=== PATIENT | male | born 1965 | race Caucasian/White ===

== ENCOUNTER → 2017-06-28 | Outpatient (CLI) | payer OTHER ==
[~2017-06-28] MED LIST: CHOLESTEROL MED; CYCL10 PO; IBUP800 PO; OXYACE5T PO
== END | disposition home or self-care (01) ==
LOC: LAB 21:00
DX: L08.9 Local infection of the skin and subcutaneous tissue, unspecified (principal)
CPT/HCPCS: 87070; 87077; 87147; 87186; 87205

== ENCOUNTER 2018-03-23 10:53 | Observation (INO) | payer OTHER ==
[~2018-03-23] VITALS: Ht 177.8 cm; Wt 117.9 kg
[~2018-03-23 10:53] MED LIST changes: -IBUP800 PO; +Ibuprofen Ib200 MG PO
[2018-03-23 12:12] LABS: BASOPHILS ABSOLUTE AUTO 0.03 K/mm3 (0.00-0.23); BASOPHILS PERCENT AUTO 0 % (0-2); EOSINOPHILS ABSOLUTE AUTO 0.01 K/mm3 (0.00-0.68); EOSINOPHILS PERCENT AUTO 0 % (0-6); Hematocrit 44.2 % (37.0-53.0); Hemoglobin 13.5 g/dL (13.5-17.5); IMMATURE GRAN ABSOLUTE AUTO 0.03 K/mm3 (0.00-0.10); IMMATURE GRAN PERCENT AUTO 0 % (0-1); LYMPHOCYTES ABSOLUTE AUTO 0.93 K/mm3 (0.84-5.20); LYMPHOCYTES PERCENT AUTO 12 % (21-46); MONOCYTES ABSOLUTE AUTO 0.74 K/mm3 (0.16-1.47); MONOCYTES PERCENT AUTO 9 % (4-13); Mean Corpuscular HGB 26.8 pg (26.0-34.0); Mean Corpuscular HGB Conc 30.5 g/dL (31.5-36.5); Mean Corpuscular Volume 88 fL (80-100); Mean Platelet Volume 10.1 fL (9.1-12.4); NEUTROPHILS PERCENT AUTO 78 % (41-73); Platelet Count 278 K/mm3 (150-400); RDW Coefficient Variation 14.4 % (11.7-14.2); RDW Standard Deviation 46.3 fL (35.1-46.3); Red Blood Cell Count 5.04 M/mm3 (4.30-5.90); White Blood Cell Count 8.04 K/mm3 (4.00-11.30)
[2018-03-23 12:42] LABS: Alanine Aminotransfer (ALT/SGP 31 U/L (12-78); Albumin/Globulin Ratio 0.7 (0.8-1.8); Alk Phos 109 U/L (50-136); Anion Gap 7 mmol/L (6-16); Aspartate Aminotrans (AST/SGOT 20 U/L (12-37); Bilirubin, Total 0.2 mg/dL (0.1-1.0); Blood Urea Nitrogen 13 mg/dL (8-24); Bun/Creatinine Ratio 14.6 (12.0-20.0); CO2, Blood 27 mmol/L (21-32); Chloride, Blood 104 mmol/L (98-108); Creatinine, Blood 0.89 mg/dL (0.60-1.20); Globulin, Blood 4.3 g/dL (2.2-4.0); Glomerular Filtration Rate >60 (60-); Glucose, Blood 110 mg/dL (70-99); Potassium, Blood 4.3 mmol/L (3.5-5.5); Sodium, Blood 138 mmol/L (136-145); Total Protein, Blood 7.3 g/dL (6.4-8.2); Troponin I 0.081 ng/mL (0.000-0.040)
[2018-03-23] MEDS ORDERED: BUDE6HFA INH (14:14)
[2018-03-23] MEDS ORDERED: ALBU90OI61 INH (14:16)
== END 2018-03-23 20:20 | disposition left against medical advice (07) ==
LOC: ER 10:53 → MEDS 10:54
PROVIDERS: Emergency Medicine; ADMIT Internal Medicine
DX: A41.9 Sepsis, unspecified organism (principal); R65.20 Severe sepsis without septic shock; J44.0 Chronic obstructive pulmonary disease with (acute) lower respiratory infection; J18.1 Lobar pneumonia, unspecified organism; J44.1 Chronic obstructive pulmonary disease with (acute) exacerbation; J96.00 Acute respiratory failure, unspecified whether with hypoxia or hypercapnia; L01.02 Bockhart's impetigo; L73.9 Follicular disorder, unspecified; R77.8 Other specified abnormalities of plasma proteins; Z87.891 Personal history of nicotine dependence; Z88.0 Allergy status to penicillin; Z79.51 Long term (current) use of inhaled steroids
CPT/HCPCS: 36415; 71046; 80053; 83605; 84484; 85025; 93005; 93010; 94640; 94644; 94760; 96365; 96367; 99285-25; G0378; J0692; J3370; J7030; J7120

== ENCOUNTER 2018-12-07 19:08 | Emergency (ER) | payer OTHER ==
[~2018-12-07] VITALS: Ht 177.8 cm; Wt 117.9 kg
[~2018-12-07 19:08] MED LIST changes: +ALBU90OI61 INH; +BUDE6HFA INH
[2018-12-07 19:36] LABS: PCO2 Arterial 44.1 mmHg (35-45); PO2 Arterial 69.6 mmHg (80-100); pH Blood Arterial 7.41 (7.35-7.45)
[2018-12-07 20:08] LABS: BASOPHILS ABSOLUTE AUTO 0.05 K/mm3 (0.00-0.23); BASOPHILS PERCENT AUTO 1 % (0-2); EOSINOPHILS PERCENT AUTO 1 % (0-6); Hematocrit 39.9 % (37.0-53.0); Hemoglobin 12.3 g/dL (13.5-17.5); IMMATURE GRAN ABSOLUTE AUTO 0.04 K/mm3 (0.00-0.10); IMMATURE GRAN PERCENT AUTO 0 % (0-1); LYMPHOCYTES ABSOLUTE AUTO 1.28 K/mm3 (0.84-5.20); LYMPHOCYTES PERCENT AUTO 13 % (21-46); MONOCYTES ABSOLUTE AUTO 0.57 K/mm3 (0.16-1.47); MONOCYTES PERCENT AUTO 6 % (4-13); Mean Corpuscular HGB 25.2 pg (26.0-34.0); Mean Corpuscular HGB Conc 30.8 g/dL (31.5-36.5); Mean Corpuscular Volume 82 fL (80-100); Mean Platelet Volume 9.9 fL (9.1-12.4); NEUTROPHILS PERCENT AUTO 80 % (41-73); Platelet Count 380 K/mm3 (150-400); RDW Coefficient Variation 15.1 % (11.7-14.2); RDW Standard Deviation 45.2 fL (35.1-46.3); Red Blood Cell Count 4.89 M/mm3 (4.30-5.90); White Blood Cell Count 10.14 K/mm3 (4.00-11.30)
[2018-12-07 20:22] LABS: Anion Gap 9 mmol/L (6-16); Blood Urea Nitrogen 23 mg/dL (8-24); Bun/Creatinine Ratio 22.3 (12.0-20.0); CO2, Blood 27 mmol/L (21-32); Calcium, Blood 8.5 mg/dL (8.5-10.1); Chloride, Blood 104 mmol/L (98-108); Creatinine, Blood 1.03 mg/dL (0.60-1.20); Glomerular Filtration Rate >60 (60-); Glucose, Blood 99 mg/dL (70-99); Sodium, Blood 140 mmol/L (136-145); Troponin I 0.114 ng/mL (0.000-0.040)
[2018-12-07] MEDS ORDERED: Prednisone50 MG PO (21:43)
[2018-12-07] MEDS ORDERED: LEVO750 PO (21:57)
== END 2018-12-07 23:00 | disposition left against medical advice (07) ==
LOC: ER 19:08
PROVIDERS: Emergency Medicine; Physician Assistant
DX: J44.1 Chronic obstructive pulmonary disease with (acute) exacerbation (principal); R79.89 Other specified abnormal findings of blood chemistry; Z88.0 Allergy status to penicillin; Z87.891 Personal history of nicotine dependence
CPT/HCPCS: 36415; 36600; 71045; 71260; 80048; 82803; 83605; 83880; 84484; 85025; 93005; 93010; 93971; 94640; 96374-59; 96375-59; 99285-25; J0692; J2405; J2930; J3370; J7050; Q9967

== ENCOUNTER 2019-01-13 22:00 | Observation (INO) | payer OTHER ==
[~2019-01-13] VITALS: Ht 170.2 cm; Wt 119.2 kg
[~2019-01-13 22:00] MED LIST changes: +LEVO750 PO; +Prednisone50 MG PO
[2019-01-13 22:11] LABS: BASOPHILS ABSOLUTE AUTO 0.06 K/mm3 (0.00-0.23); BASOPHILS PERCENT AUTO 1 % (0-2); EOSINOPHILS PERCENT AUTO 2 % (0-6); Hematocrit 39.6 % (37.0-53.0); Hemoglobin 11.8 g/dL (13.5-17.5); IMMATURE GRAN ABSOLUTE AUTO 0.07 K/mm3 (0.00-0.10); IMMATURE GRAN PERCENT AUTO 1 % (0-1); LYMPHOCYTES ABSOLUTE AUTO 1.73 K/mm3 (0.84-5.20); LYMPHOCYTES PERCENT AUTO 20 % (21-46); MONOCYTES ABSOLUTE AUTO 0.71 K/mm3 (0.16-1.47); MONOCYTES PERCENT AUTO 8 % (4-13); Mean Corpuscular HGB 24.7 pg (26.0-34.0); Mean Corpuscular HGB Conc 29.8 g/dL (31.5-36.5); Mean Corpuscular Volume 83 fL (80-100); Mean Platelet Volume 9.4 fL (9.1-12.4); NEUTROPHILS ABSOLUTE AUTO 6.06 K/mm3 (1.96-9.15); NEUTROPHILS PERCENT AUTO 69 % (41-73); Platelet Count 378 K/mm3 (150-400); RDW Coefficient Variation 14.9 % (11.7-14.2); RDW Standard Deviation 45.1 fL (35.1-46.3); Red Blood Cell Count 4.78 M/mm3 (4.30-5.90); White Blood Cell Count 8.83 K/mm3 (4.00-11.30)
[2019-01-13 22:28] LABS: International Normalized Ratio 0.93; Prothrombin Time Results 9.9 Sec (9.7-11.5)
[2019-01-13 22:38] LABS: Alanine Aminotransfer (ALT/SGP 28 U/L (12-78); Albumin, Blood 3.2 g/dL (3.4-5.0); Albumin/Globulin Ratio 0.8 (0.8-1.8); Alk Phos 98 U/L (50-136); Anion Gap 3 mmol/L (6-16); Aspartate Aminotrans (AST/SGOT 17 U/L (12-37); Bilirubin, Total 0.3 mg/dL (0.1-1.0); Blood Urea Nitrogen 18 mg/dL (8-24); CO2, Blood 31 mmol/L (21-32); Calcium, Blood 8.3 mg/dL (8.5-10.1); Chloride, Blood 105 mmol/L (98-108); Creatinine, Blood 0.95 mg/dL (0.60-1.20); Globulin, Blood 3.8 g/dL (2.2-4.0); Glomerular Filtration Rate >60 (60-); Glucose, Blood 108 mg/dL (70-99); Potassium, Blood 3.7 mmol/L (3.5-5.5); Sodium, Blood 139 mmol/L (136-145)
[2019-01-14 05:05] LABS: Hematocrit 41.8 % (37.0-53.0); Hemoglobin 12.3 g/dL (13.5-17.5); Mean Corpuscular HGB 24.4 pg (26.0-34.0); Mean Corpuscular HGB Conc 29.4 g/dL (31.5-36.5); Mean Corpuscular Volume 83 fL (80-100); Mean Platelet Volume 9.7 fL (9.1-12.4); Platelet Count 382 K/mm3 (150-400); RDW Coefficient Variation 15.3 % (11.7-14.2); RDW Standard Deviation 46.1 fL (35.1-46.3); Red Blood Cell Count 5.05 M/mm3 (4.30-5.90); White Blood Cell Count 8.74 K/mm3 (4.00-11.30)
--- NOTE | 2019-01-14 05:50 | NUR ---
SHIFT SUMMARY PATIENT ADMITTED FROM ED. PATIENT DROWSY AND FINDS IT DIFFICULT TO STAY AWAKE TO ANSWER ADMISSION QUESTIONS. PATIENT HAS RIGHT SIDED NUMBNESS AND SLIGHT RIGHT FACIAL DROOP. NO RIGHT SIDED WEAKNESS OBSERVED DURING EXAM. HEPARIN DRIP RECEIVED AND VERIFIED WITH MONICA ESPAÑA. TELEMETRY PLACED ON PT HR ST. PATIENT SLEPT THROUGHOUT REST OF NIGHT. UP WITH 1 ASSIST TO THE BATHROOM. AAOX4 BUT A POOR HISTORIAN. WILL CONTINUE TO MONITOR.
[2019-01-14 05:57] LABS: Alanine Aminotransfer (ALT/SGP 29 U/L (12-78); Albumin, Blood 3.3 g/dL (3.4-5.0); Albumin/Globulin Ratio 0.8 (0.8-1.8); Alk Phos 103 U/L (50-136); Anion Gap 6 mmol/L (6-16); Aspartate Aminotrans (AST/SGOT 18 U/L (12-37); Bilirubin, Total 0.2 mg/dL (0.1-1.0); Blood Urea Nitrogen 19 mg/dL (8-24); Bun/Creatinine Ratio 21.4 (12.0-20.0); CO2, Blood 29 mmol/L (21-32); Calcium, Blood 8.6 mg/dL (8.5-10.1); Chloride, Blood 103 mmol/L (98-108); Creatinine, Blood 0.89 mg/dL (0.60-1.20); Globulin, Blood 3.9 g/dL (2.2-4.0); Glomerular Filtration Rate >60 (60-); Glucose, Blood 91 mg/dL (70-99); Potassium, Blood 3.9 mmol/L (3.5-5.5); Sodium, Blood 138 mmol/L (136-145); Total Protein, Blood 7.2 g/dL (6.4-8.2)
--- NOTE | 2019-01-14 08:55 | NUR ---
HEPARIN VERIFIED WITH BARBARA MONTEMAYOR.
--- NOTE | 2019-01-14 11:28 | NUR ---
Echocardiogram using 9.0ml of agitated salinecontrast performed.
[2019-01-14 12:03] LABS: U Amphetamine Screen DETECTED; U Barbituate Screen Not Detected; U Benzodiazapine Screen Not Detected; U Buprenorphine Screen Not Detected; U Cannabinoids Screen Not Detected; U Cocaine Screen Not Detected; U Methadone Screen Not Detected; U Methamphetamine Screen Not Detected; U Opiates Screen Not Detected; U Oxycodone Screen Not Detected; U Phencyclidine Screen Not Detected; U Propoxyphene Screen Not Detected
[2019-01-14] MEDS ORDERED: AMLO10 PO (14:31)
[2019-01-14] MEDS ORDERED: ASPI81CH PO (14:31)
[2019-01-14] MEDS ORDERED: ATOR40TA PO (14:32)
[2019-01-14] MEDS ORDERED: CLOP75 PO (17:48)
== END 2019-01-14 18:27 | disposition home or self-care (01) ==
LOC: ER 22:00 → MEDS 22:01
PROVIDERS: Emergency Medicine; ADMIT Internal Medicine
DX: I63.532 Cerebral infarction due to unspecified occlusion or stenosis of left posterior cerebral artery (principal); G81.91 Hemiplegia, unspecified affecting right dominant side; H53.8 Other visual disturbances; I10 Essential (primary) hypertension; J44.9 Chronic obstructive pulmonary disease, unspecified; F17.200 Nicotine dependence, unspecified, uncomplicated; G89.29 Other chronic pain; M54.9 Dorsalgia, unspecified; E66.9 Obesity, unspecified; Z68.37 Body mass index [BMI] 37.0-37.9, adult; Z88.0 Allergy status to penicillin
CPT/HCPCS: 36415; 70450; 70496; 71045; 80053; 85025; 85027; 85610; 85730; 93005; 93010; 93306; 93308; 93321; 93880; 96361; 96374-59; 96375; 96375-59; 96376; 99285-25; G0378; J1644; J2405; J3010; J7030; Q9967

== ENCOUNTER 2019-01-30 08:58 | Emergency (ER) | payer OTHER ==
[~2019-01-30] VITALS: Ht 180.3 cm; Wt 113.4 kg
[~2019-01-30 08:58] MED LIST changes: +AMLO10 PO; +ASPI81CH PO; +ATOR40TA PO; +CLOP75 PO
[2019-01-30 09:41] LABS: BASOPHILS ABSOLUTE AUTO 0.05 K/mm3 (0.00-0.23); BASOPHILS PERCENT AUTO 1 % (0-2); EOSINOPHILS ABSOLUTE AUTO 0.13 K/mm3 (0.00-0.68); EOSINOPHILS PERCENT AUTO 2 % (0-6); Hematocrit 41.3 % (37.0-53.0); Hemoglobin 12.5 g/dL (13.5-17.5); IMMATURE GRAN ABSOLUTE AUTO 0.03 K/mm3 (0.00-0.10); IMMATURE GRAN PERCENT AUTO 0 % (0-1); LYMPHOCYTES ABSOLUTE AUTO 1.48 K/mm3 (0.84-5.20); LYMPHOCYTES PERCENT AUTO 20 % (21-46); MONOCYTES ABSOLUTE AUTO 0.66 K/mm3 (0.16-1.47); MONOCYTES PERCENT AUTO 9 % (4-13); Mean Corpuscular HGB 24.8 pg (26.0-34.0); Mean Corpuscular HGB Conc 30.3 g/dL (31.5-36.5); Mean Corpuscular Volume 82 fL (80-100); Mean Platelet Volume 9.7 fL (9.1-12.4); NEUTROPHILS ABSOLUTE AUTO 5.03 K/mm3 (1.96-9.15); NEUTROPHILS PERCENT AUTO 68 % (41-73); Platelet Count 415 K/mm3 (150-400); RDW Standard Deviation 45.1 fL (35.1-46.3); Red Blood Cell Count 5.04 M/mm3 (4.30-5.90); White Blood Cell Count 7.38 K/mm3 (4.00-11.30)
[2019-01-30 09:55] LABS: Alanine Aminotransfer (ALT/SGP 31 U/L (12-78); Albumin, Blood 3.1 g/dL (3.4-5.0); Albumin/Globulin Ratio 0.8 (0.8-1.8); Alk Phos 107 U/L (50-136); Anion Gap 8 mmol/L (6-16); Aspartate Aminotrans (AST/SGOT 20 U/L (12-37); Bilirubin, Total 0.3 mg/dL (0.1-1.0); Blood Urea Nitrogen 17 mg/dL (8-24); Bun/Creatinine Ratio 20.7 (12.0-20.0); CO2, Blood 23 mmol/L (21-32); Calcium, Blood 8.5 mg/dL (8.5-10.1); Chloride, Blood 106 mmol/L (98-108); Creatinine, Blood 0.82 mg/dL (0.60-1.20); Globulin, Blood 4.1 g/dL (2.2-4.0); Glomerular Filtration Rate >60 (60-); Glucose, Blood 113 mg/dL (70-99); Potassium, Blood 3.9 mmol/L (3.5-5.5); Sodium, Blood 137 mmol/L (136-145); Total Protein, Blood 7.2 g/dL (6.4-8.2); Troponin I 0.074 ng/mL (0.000-0.040)
== END 2019-01-30 12:13 | disposition left against medical advice (07) ==
LOC: ER 08:58
PROVIDERS: Emergency Medicine
DX: J44.1 Chronic obstructive pulmonary disease with (acute) exacerbation (principal); R79.89 Other specified abnormal findings of blood chemistry; M79.89 Other specified soft tissue disorders; Z88.0 Allergy status to penicillin; Z79.899 Other long term (current) drug therapy; Z79.82 Long term (current) use of aspirin; Z87.891 Personal history of nicotine dependence
CPT/HCPCS: 36415; 71045; 80053; 83880; 84484; 85025; 93005; 93010; 94640; 94644; 96374; 99284-25; J2930

== ENCOUNTER 2019-02-08 11:00 | Emergency (ER) | payer OTHER ==
[~2019-02-08] VITALS: Ht 177.8 cm; Wt 108.9 kg
[2019-02-08 12:11] LABS: BASOPHILS ABSOLUTE AUTO 0.04 K/mm3 (0.00-0.23); BASOPHILS PERCENT AUTO 0 % (0-2); EOSINOPHILS ABSOLUTE AUTO 0.16 K/mm3 (0.00-0.68); EOSINOPHILS PERCENT AUTO 2 % (0-6); Hematocrit 40.4 % (37.0-53.0); Hemoglobin 12.2 g/dL (13.5-17.5); IMMATURE GRAN ABSOLUTE AUTO 0.05 K/mm3 (0.00-0.10); IMMATURE GRAN PERCENT AUTO 1 % (0-1); LYMPHOCYTES ABSOLUTE AUTO 1.57 K/mm3 (0.84-5.20); LYMPHOCYTES PERCENT AUTO 15 % (21-46); MONOCYTES ABSOLUTE AUTO 0.91 K/mm3 (0.16-1.47); MONOCYTES PERCENT AUTO 9 % (4-13); Mean Corpuscular HGB 24.3 pg (26.0-34.0); Mean Corpuscular HGB Conc 30.2 g/dL (31.5-36.5); Mean Corpuscular Volume 80 fL (80-100); Mean Platelet Volume 9.8 fL (9.1-12.4); NEUTROPHILS ABSOLUTE AUTO 7.76 K/mm3 (1.96-9.15); NEUTROPHILS PERCENT AUTO 74 % (41-73); Platelet Count 376 K/mm3 (150-400); RDW Coefficient Variation 15.1 % (11.7-14.2); RDW Standard Deviation 43.8 fL (35.1-46.3); Red Blood Cell Count 5.03 M/mm3 (4.30-5.90); White Blood Cell Count 10.49 K/mm3 (4.00-11.30)
[2019-02-08 12:31] LABS: Alanine Aminotransfer (ALT/SGP 28 U/L (12-78); Albumin, Blood 2.8 g/dL (3.4-5.0); Albumin/Globulin Ratio 0.6 (0.8-1.8); Alk Phos 107 U/L (50-136); Anion Gap 7 mmol/L (6-16); Aspartate Aminotrans (AST/SGOT 10 U/L (12-37); Bilirubin, Total 0.3 mg/dL (0.1-1.0); Blood Urea Nitrogen 13 mg/dL (8-24); Bun/Creatinine Ratio 14.1 (12.0-20.0); CO2, Blood 26 mmol/L (21-32); Calcium, Blood 8.3 mg/dL (8.5-10.1); Chloride, Blood 104 mmol/L (98-108); Creatinine, Blood 0.92 mg/dL (0.60-1.20); Globulin, Blood 4.5 g/dL (2.2-4.0); Glomerular Filtration Rate >60 (60-); Glucose, Blood 99 mg/dL (70-99); Potassium, Blood 3.9 mmol/L (3.5-5.5); Sodium, Blood 137 mmol/L (136-145); Total Protein, Blood 7.3 g/dL (6.4-8.2)
== END 2019-02-08 13:47 | disposition left against medical advice (07) ==
LOC: ER 11:00
PROVIDERS: Emergency Medicine
DX: Z53.21 Procedure and treatment not carried out due to patient leaving prior to being seen by health care provider (principal)
CPT/HCPCS: 36415; 80053; 85025; 99283

== ENCOUNTER 2019-06-03 21:40 | Emergency (ER) | payer OTHER ==
[~2019-06-03] VITALS: Ht 177.8 cm; Wt 154.2 kg
== END 2019-06-03 22:30 | disposition left against medical advice (07) ==
LOC: ER 21:40
DX: Z53.21 Procedure and treatment not carried out due to patient leaving prior to being seen by health care provider (principal)
CPT/HCPCS: 93005; 93010

== ENCOUNTER 2019-12-16 10:00 | Emergency (ER) | payer OTHER ==
[~2019-12-16] VITALS: Ht 180.3 cm; Wt 117.9 kg
[2019-12-16 13:35] LABS: Calcium, Ionized (POC) 1.13 mmol/L (1.10-1.46); Chloride (POC) 100 mmol/L (98-108); Creatinine (POC) 0.9 mg/dL (0.8-1.3); Glucose (ISTAT POC) 98 mg/dL (70-99); Hemoglobin (POC) 13.9 g/dL (13.5-17.5); Potassium (POC) 4.2 mmol/L (3.5-5.5); Sodium (POC) 139 mmol/L (135-148); Total CO2 (POC) 27 mmol/L (21-32)
[2019-12-16] MEDS ORDERED: Norvasc10 MG PO (14:01)
== END 2019-12-16 14:21 | disposition home or self-care (01) ==
LOC: ER 10:00
PROVIDERS: Physician Assistant
DX: R60.0 Localized edema (principal); R06.02 Shortness of breath; J44.9 Chronic obstructive pulmonary disease, unspecified; I10 Essential (primary) hypertension; Z88.0 Allergy status to penicillin; Z79.82 Long term (current) use of aspirin; Z79.02 Long term (current) use of antithrombotics/antiplatelets; Z86.73 Personal history of transient ischemic attack (TIA), and cerebral infarction without residual deficits; Z79.899 Other long term (current) drug therapy; Z87.891 Personal history of nicotine dependence
CPT/HCPCS: 80047; 85014; 93971; 99284-25

== ENCOUNTER 2020-06-27 15:26 | Inpatient (IN) | payer OTHER ==
[~2020-06-27] VITALS: Ht 180.3 cm; Wt 128.0 kg
[~2020-06-27 15:26] MED LIST changes: +Norvasc10 MG PO
[2020-06-27 15:57] LABS: BASOPHILS ABSOLUTE AUTO 0.07 K/mm3 (0.00-0.23); BASOPHILS PERCENT AUTO 1 % (0-2); EOSINOPHILS ABSOLUTE AUTO 0.13 K/mm3 (0.00-0.68); EOSINOPHILS PERCENT AUTO 1 % (0-6); Hematocrit 42.1 % (37.0-53.0); Hemoglobin 12.4 g/dL (13.5-17.5); IMMATURE GRAN ABSOLUTE AUTO 0.05 K/mm3 (0.00-0.10); IMMATURE GRAN PERCENT AUTO 1 % (0-1); LYMPHOCYTES ABSOLUTE AUTO 1.43 K/mm3 (0.84-5.20); LYMPHOCYTES PERCENT AUTO 15 % (21-46); MONOCYTES PERCENT AUTO 8 % (4-13); Mean Corpuscular HGB 23.5 pg (26.0-34.0); Mean Corpuscular HGB Conc 29.5 g/dL (31.5-36.5); Mean Corpuscular Volume 80 fL (80-100); Mean Platelet Volume 9.7 fL (9.1-12.4); NEUTROPHILS ABSOLUTE AUTO 7.38 K/mm3 (1.96-9.15); NEUTROPHILS PERCENT AUTO 75 % (41-73); Platelet Count 377 K/mm3 (150-400); RDW Coefficient Variation 16.1 % (11.7-14.2); RDW Standard Deviation 45.7 fL (35.1-46.3); Red Blood Cell Count 5.28 M/mm3 (4.30-5.90); White Blood Cell Count 9.86 K/mm3 (4.00-11.30)
[2020-06-27 16:14] LABS: Alanine Aminotransfer (ALT/SGP 26 U/L (12-78); Albumin, Blood 3.2 g/dL (3.4-5.0); Albumin/Globulin Ratio 0.7 (0.8-1.8); Alk Phos 113 U/L (50-136); Anion Gap 1 mmol/L (6-16); Aspartate Aminotrans (AST/SGOT 21 U/L (12-37); Bilirubin, Total 0.3 mg/dL (0.1-1.0); Blood Urea Nitrogen 19 mg/dL (8-24); Bun/Creatinine Ratio 19.8 (12.0-20.0); CO2, Blood 34 mmol/L (21-32); Calcium, Blood 8.4 mg/dL (8.5-10.1); Chloride, Blood 102 mmol/L (98-108); Creatinine, Blood 0.96 mg/dL (0.60-1.20); Globulin, Blood 4.5 g/dL (2.2-4.0); Glomerular Filtration Rate >60 (60-); Glucose, Blood 126 mg/dL (70-99); Sodium, Blood 137 mmol/L (136-145); Total Protein, Blood 7.7 g/dL (6.4-8.2)
[2020-06-27 16:26] LABS: Base Excess Venous 9.4 mmol/L; Bicarbonate Venous 32.3 mmol/L (24.0-30.0); PCO2 Venous 41.4 mmHg (38-42); PO2 Venous 176 mmHg (38-42)
[2020-06-27 17:19] LABS: SARS-Cov-2 (COVID-19) PCR, MMC NEGATIVE (NEGATIVE)
[2020-06-27] MEDS ORDERED: AMLO10 PO (18:13)
[2020-06-27 20:06] LABS: U Amphetamine Screen DETECTED; U Barbituate Screen Not Detected; U Benzodiazapine Screen Not Detected; U Buprenorphine Screen Not Detected; U Cannabinoids Screen Not Detected; U Cocaine Screen Not Detected; U Methadone Screen Not Detected; U Methamphetamine Screen DETECTED; U Opiates Screen Not Detected; U Oxycodone Screen Not Detected; U Phencyclidine Screen Not Detected; U Propoxyphene Screen Not Detected
--- NOTE | 2020-06-27 22:19 | NUR ---
ADMIT NOTE PT ARRIVED TO PCU VIA ED STRETCHER AT APPROX 2145. THE PT AMBULATED INDEPENDENTLY W/ CANE FROM ED STRETCHER TO PCU BED. PT IS A&OX4. SP02>90% ON 2L NC. PT SOB W/ EXERTION. LUNGS W/ EXP WHEEZING. TELEMETRY READS SINUS TACH, HR 100'S. PT C/O OF PAIN IN HIS RLE, 3+ EDEMA. PT STATES IT FEELS TIGHT, RELIEF FELT WHEN SHOE/SOCK REMOVED. NOW ELEVATED ON PILLOW. PT ORIENTED TO ROOM, CALL LIGHT. CALL LIGHT WITHIN REACH, BED ALARM ON.
[2020-06-28 04:17] LABS: BASOPHILS ABSOLUTE AUTO 0.02 K/mm3 (0.00-0.23); BASOPHILS PERCENT AUTO 0 % (0-2); EOSINOPHILS PERCENT AUTO 0 % (0-6); Hematocrit 42.5 % (37.0-53.0); Hemoglobin 12.1 g/dL (13.5-17.5); IMMATURE GRAN ABSOLUTE AUTO 0.11 K/mm3 (0.00-0.10); IMMATURE GRAN PERCENT AUTO 1 % (0-1); LYMPHOCYTES ABSOLUTE AUTO 0.46 K/mm3 (0.84-5.20); LYMPHOCYTES PERCENT AUTO 5 % (21-46); MONOCYTES ABSOLUTE AUTO 0.04 K/mm3 (0.16-1.47); MONOCYTES PERCENT AUTO 0 % (4-13); Mean Corpuscular HGB 22.6 pg (26.0-34.0); Mean Corpuscular HGB Conc 28.5 g/dL (31.5-36.5); Mean Corpuscular Volume 79 fL (80-100); Mean Platelet Volume 9.7 fL (9.1-12.4); NEUTROPHILS ABSOLUTE AUTO 8.87 K/mm3 (1.96-9.15); NEUTROPHILS PERCENT AUTO 93 % (41-73); Platelet Count 400 K/mm3 (150-400); RDW Standard Deviation 45.6 fL (35.1-46.3); Red Blood Cell Count 5.35 M/mm3 (4.30-5.90)
[2020-06-28 04:42] LABS: Anion Gap 1 mmol/L (6-16); Blood Urea Nitrogen 18 mg/dL (8-24); Bun/Creatinine Ratio 20.3 (12.0-20.0); CO2, Blood 35 mmol/L (21-32); Calcium, Blood 8.1 mg/dL (8.5-10.1); Chloride, Blood 100 mmol/L (98-108); Creatinine, Blood 0.89 mg/dL (0.60-1.20); Glomerular Filtration Rate >60 (60-); Glucose, Blood 208 mg/dL (70-99); Potassium, Blood 4.4 mmol/L (3.5-5.5); Sodium, Blood 136 mmol/L (136-145)
--- NOTE | 2020-06-28 07:31 | NUR ---
SHIFT SUMMARY PT IS A&OX4. ONE EPISODE OF CONFUSION WHEN PT AWAKENED IN MIDDLE OF NIGHT, DIDNT KNOW WHERE URINAL WAS, THOUGH HE WAS HANDED THE URINAL BY 2 STAFF. PT CONTINUED TO SAY HE COULDNT SEE IT AND URINATED ON FLOOR. SP02>90% ON 2L NC WHILE AWAKE, 6L NC WHILE SLEEPING. PT REFUSES CPAP. PT SOB W/ EXERTION. TELEMETRY READS SINUS TACH, HR 100'S. PT ORIENTED TO ROOM, CALL LIGHT. CALL LIGHT WITHIN REACH, BED ALARM ON.
--- NOTE | 2020-06-28 19:02 | NUR ---
SHIFT NOTE THIS AM PT HAD AN OUTBURST OF ANGER AND THREW BREATHING TREATMENT AT [facility]. PT HAS OTHERWISE BEEN CALM AND COOPERTIVE T/O THE DAY. VSS, SOME HTN NOTED. PT DESATURATES WHEN SLEEPING BUT REFUSES NASAL CANNULA IN MOUTH HE IS A MOUTH BREATHER, AND REFUSES BIPAP.
--- NOTE | 2020-06-29 05:49 | NUR ---
SHIFT SUMMARY NO ACUTE CHANGES THIS SHIFT. PT A&OX4. SP02>90% ON 6L NC. PT DESATS WHILE SLEEPING. REFUSES CPAP. PT BECAME AGITATED AT BEGINNING OF SHIFT WHEN STAFF PLACED NON REBREATHER ON PT WHILE PT SLEPT. PT STATES, "I WAKE UP FEELING LIKE I CANT BREATHE WITH THAT ON". TELEMETRY READS SINUS TACH, HR 100'S. PT DENIES PAIN. SLEPT T/O NIGHT SITTING UP IN BED. USED URINAL AT BEDSIDE. CALL LIGHT IN REACH. WILL GIVE REPORT TO ONCOMING NURSE.
--- NOTE | 2020-06-29 08:52 | NUR ---
pt called staff into room because he dropped fan and other things off table, seems very impulsive, a bit diff to understand, mumbles, got him up to chair so we could straighten his bed, he stands and ambulates indep, gait noted to be steady, a/ox3, cooperative with care, follows commands well, denies pain reports breathing is some easier, denies productive cough, lungs are tight, dim on insp, exp wheeze t/o, resp even and unlabored at rest, is a bit labored with activity, no cough noted, hrr, tele in place running sr to st per monitor, see strip, edema noted to b/l le, +1 to left and +2-3 on right, ppp+2, cap refill <3sec, vs stable, afebrile, iv site is clear and patent, btx4, abd round firm, reports reg bm's and voids without diff, usinig a urinal, also has pullups in place, skin c/w/d, von yo, call light in reach.
--- NOTE | 2020-06-29 14:12 | NUR ---
pt found to be 83% while asleep and apnic, when he was woke he came back up to 90's slowly, spoke with him about using a cpap, he said he was willing to try, RT called and set him up. call light in reach.
--- NOTE | 2020-06-29 16:08 | NUR ---
pt sleeping, 02 sats 93%. call light in reach.
--- NOTE | 2020-06-29 18:12 | NUR ---
UPDATE: Pt cont. biox was alarming at 84%. Increased oxygen to 6L per n/c. Pt c/o bloody nose and "all you do is shove a bigger hose in my nose that makes more holes." Attempted to explain to the patient the difference between high flow NC and regular NC and why he needed the high flow. Pt stated "you just didn't want to clean my nose out so you shoved a bigger hose in it". Again attempted to explain oxygen demands and high flow vs reg NC. Pt stated "you don't know the difference between your head and your ass!" Informed pt that He did not understand medicine and he was not being cooperative. Pt started yelling. I closed the door so other patients do not have to hear him. tele is in place for cardiac monitoring, cont. biox is in place with volume up for oxygen saturations. Will monitor.
--- NOTE | 2020-06-29 18:31 | NUR ---
pt has been very angry since cpap was attempted, he was given the nasal cannula since not tolerating the mask, went to sleep for a few minutes and woke up with some secretions in his mouth, very angry, absolutely freaking out yelling, his came in and he never stopped yelling, attempted to speak to him he is not willing to listen and is not rational, telling staff we are stupid, he has escalated all day, believes we blew holes in his nose, and wants to leave. attempted to reason with him, he wont. called Dr. Davidson, he said to let him go ama, nursing accounting supervisor called she is speaking with him now. call light in reach.
--- NOTE | 2020-06-29 20:43 | NUR ---
CARE ASSUMPTION UPON CARE ASSUMPTION, PT AGITATED/IRRITABLE. PT'S IN ROOM. RT, KT, IN ROOM AFTER RECEIVING REPORT, HELPING PT WITH BREATHING TREATMENT. RT LETTING PT CHOOSE WHICH MASK HE WANTS TO WEAR, PT APPEARED TO BE CALMING DOWN. AFTER TREATMENT, PT UP TO BATHROOM AND THEN SHOWER. TOILET LEAKS WHEN PT SITS ON IT. SPOKE TO PT ABOUT SWITCHING ROOMS D/T TOILET ISSUE, PT AGREES. PT TRANSFERRED TO PCU 5. PT NOW RESTING IN BED WATCHING TV, PLEASENT WITH STAFF. CALL LIGHT IN REACH.
[2020-06-29 22:22] LABS: U Amphetamine Screen DETECTED; U Barbituate Screen Not Detected; U Benzodiazapine Screen Not Detected; U Buprenorphine Screen Not Detected; U Cannabinoids Screen Not Detected; U Cocaine Screen Not Detected; U Methadone Screen Not Detected; U Methamphetamine Screen DETECTED; U Opiates Screen Not Detected; U Oxycodone Screen Not Detected; U Phencyclidine Screen Not Detected; U Propoxyphene Screen Not Detected
--- NOTE | 2020-06-30 06:05 | NUR ---
SHIFT SUMMARY NO ACUTE CHANGES THIS SHIFT. PT A&OX4. SP02>90% ON 10L. PT REFUSED CPAP BUT SLEPT ON SIDE MOST OF NIGHT WHICH IMPROVED HIS SNORING/OXYGENATION SOME. TELEMETRY READS SINUS TACH, HR 100'S. PT DENIED PAIN. USED URINAL AT BEDSIDE AND SBA TO BATHROOM TO HAVE BM. PT SLEPT MOST OF NIGHT. CALL LIGHT IN REACH. WILL GIVE REPORT TO ONCOMING NURSE.
--- NOTE | 2020-06-30 13:13 | NUR ---
ARRIVAL TO MEDICAL UNIT ARRIVES VIA W/C & SBA TO GET TO HOSPITAL BED. DYSPNEA W/ MINIMAL ACTIVITY. 10L NC W/ HUMIDIFIER. LUNGS DIM W/ EXPIRATORY WHEEZES T/O. ICE WATER & CALL LIGHT GIVEN.
--- NOTE | 2020-06-30 17:25 | NUR ---
SHIFT SUMMARY SINCE ARRIVAL TO UNIT, PT HAS BEEN APPROP. CONT'S TO BE ON 10L NC. DYSPNEA NOTED AFTER AMBULATING TO BATHROOM TO VOID. EATING & DRINKING WELL. AFTER USING DECONGESTANT, REPORTS FEELING THAT HE IS GETTING MORE MOUCOUS WHEN BLOWING HIS NOSE.
--- NOTE | 2020-07-01 04:40 | NUR ---
SHIFT SUMMARY ASSUMED CARE OF PT AT 1900. PT IS A/OX4. HEART SOUNDS REGULAR, TELE SHOWS SINUS. AT AROUND 0200 PT HAD A 6 SECOND RUN OF SVT, VITALS STABLE, PT ASYMPTOMATIC, HOSPITALISTS NOTIFIED AND SAID TO CONTINUE TO MONITOR PT. PT IS INDEPENDENT IN HIS ROOM. PT REFUSED HIS CPAP BUT TOOK BREATHING TREATMENTS DURING THE NIGHT. CALL LIGHT IN REACH, BED IN LOWEST POSTION.
[2020-07-01] MEDS ORDERED: BUSPIRONE HCL7.5 M1 PO (11:10)
[2020-07-01] MEDS ORDERED: BUDESONIDE0.5 MG/2 M INH (11:10)
[2020-07-01] MEDS ORDERED: IPRAT-ALBUT 0.5-3 ML INH (11:14)
[2020-07-01] MEDS ORDERED: METO50ER PO (11:14)
[2020-07-01] MEDS ORDERED: OXYM.05NI (11:15)
[2020-07-01] MEDS ORDERED: PRED20 PO (11:16)
--- NOTE | 2020-07-01 16:17 | NUR ---
1510 PT DISCHARGED HOME VIA PERSONAL VEHICLE ACCOMPANIED AND DRIVEN BY . PT WITH PORTABLE O2 DELIVERED BY [facility] PRIOR TO D/C ON AND IN PLACE, PT EDUCATED ON O2 USE AND SAFETY. PT REQUIRED 5L O2 NC WITH ACTIVITY AND RA AT REST. IV REMOVED. D/C INSTRUCTIONS REVIEWED WITH PT AND AND COPY PROVIDED.
== END 2020-07-01 15:10 | disposition home or self-care (01) | DRG 189 ==
LOC: ER 15:26 → PCU 17:55 → MEDS 06-30 13:05 → ENPENDDIS 07-01 11:09 → MEDS 07-01 15:10
PROVIDERS: Emergency Medicine; Physician Assistant; ADMIT Internal Medicine
DX: J96.01 Acute respiratory failure with hypoxia (principal); I21.A1 Myocardial infarction type 2; E87.4 Mixed disorder of acid-base balance; F17.210 Nicotine dependence, cigarettes, uncomplicated; E66.01 Morbid (severe) obesity due to excess calories; D50.9 Iron deficiency anemia, unspecified; Z20.822 Contact with and (suspected) exposure to COVID-19; I10 Essential (primary) hypertension; F41.9 Anxiety disorder, unspecified; D63.8 Anemia in other chronic diseases classified elsewhere; F15.10 Other stimulant abuse, uncomplicated; J43.9 Emphysema, unspecified; G89.29 Other chronic pain; R73.9 Hyperglycemia, unspecified; R45.1 Restlessness and agitation; M54.9 Dorsalgia, unspecified; Z86.73 Personal history of transient ischemic attack (TIA), and cerebral infarction without residual deficits; Z98.890 Other specified postprocedural states; Z88.0 Allergy status to penicillin; Z91.14 Patient's other noncompliance with medication regimen
CPT/HCPCS: 36415; 71045; 71260; 74177; 80048; 80053; 82803; 83880; 84145; 84443; 84484; 85025; 93005; 93010; 93306; 94640; 94660; 94760; 94761; 94762; 96365; 96375; 99285-25; A9270; G0480; J0360; J0696; J2930; J3475; J7512; Q9967; U0004

== ENCOUNTER 2020-07-12 01:56 | Inpatient (IN) | payer OTHER ==
[~2020-07-12] VITALS: Ht 180.3 cm; Wt 126.6 kg
[~2020-07-12 01:56] MED LIST changes: +BUDESONIDE0.5 MG/2 M INH; +BUSPIRONE HCL7.5 M1 PO; +IPRAT-ALBUT 0.5-3 ML INH; +METO50ER PO; +OXYM.05NI; +PRED20 PO
[2020-07-12 02:09] LABS: BASOPHILS ABSOLUTE AUTO 0.04 K/mm3 (0.00-0.23); BASOPHILS PERCENT AUTO 0 % (0-2); EOSINOPHILS PERCENT AUTO 1 % (0-6); Hematocrit 42.8 % (37.0-53.0); Hemoglobin 12.3 g/dL (13.5-17.5); IMMATURE GRAN ABSOLUTE AUTO 0.08 K/mm3 (0.00-0.10); IMMATURE GRAN PERCENT AUTO 1 % (0-1); LYMPHOCYTES ABSOLUTE AUTO 1.17 K/mm3 (0.84-5.20); LYMPHOCYTES PERCENT AUTO 8 % (21-46); MONOCYTES ABSOLUTE AUTO 1.04 K/mm3 (0.16-1.47); MONOCYTES PERCENT AUTO 7 % (4-13); Mean Corpuscular HGB 23.4 pg (26.0-34.0); Mean Corpuscular HGB Conc 28.7 g/dL (31.5-36.5); Mean Corpuscular Volume 81 fL (80-100); Mean Platelet Volume 9.8 fL (9.1-12.4); NEUTROPHILS ABSOLUTE AUTO 12.01 K/mm3 (1.96-9.15); NEUTROPHILS PERCENT AUTO 83 % (41-73); Platelet Count 314 K/mm3 (150-400); RDW Coefficient Variation 17.8 % (11.7-14.2); RDW Standard Deviation 49.9 fL (35.1-46.3); Red Blood Cell Count 5.26 M/mm3 (4.30-5.90); White Blood Cell Count 14.44 K/mm3 (4.00-11.30)
[2020-07-12 02:31] LABS: Alanine Aminotransfer (ALT/SGP 80 U/L (12-78); Albumin/Globulin Ratio 0.8 (0.8-1.8); Alk Phos 89 U/L (50-136); Anion Gap 2 mmol/L (6-16); Aspartate Aminotrans (AST/SGOT 21 U/L (12-37); Bilirubin, Total 0.2 mg/dL (0.1-1.0); Blood Urea Nitrogen 19 mg/dL (8-24); Bun/Creatinine Ratio 21.3 (12.0-20.0); CO2, Blood 33 mmol/L (21-32); Calcium, Blood 7.9 mg/dL (8.5-10.1); Chloride, Blood 103 mmol/L (98-108); Creatinine, Blood 0.89 mg/dL (0.60-1.20); Globulin, Blood 3.8 g/dL (2.2-4.0); Glomerular Filtration Rate >60 (60-); Glucose, Blood 115 mg/dL (70-99); Potassium, Blood 4.1 mmol/L (3.5-5.5); Sodium, Blood 138 mmol/L (136-145); Total Protein, Blood 6.8 g/dL (6.4-8.2); Troponin I 0.142 ng/mL (0.000-0.040)
[2020-07-12 02:36] LABS: PCO2 Arterial 66.9 mmHg (35-45); PO2 Arterial 78.8 mmHg (80-100); pH Blood Arterial 7.32 (7.35-7.45)
[2020-07-12 02:55] LABS: SARS-Cov-2 (COVID-19) PCR, MMC NEGATIVE (NEGATIVE)
[2020-07-12 03:37] LABS: PO2 Arterial 75.5 mmHg (80-100)
[2020-07-12 03:38] LABS: PCO2 Arterial 73.3 mmHg (35-45); pH Blood Arterial 7.29 (7.35-7.45)
--- NOTE | 2020-07-12 05:53 | NUR ---
ADMISSION NOTE: PT ARRIVED TO PCU VIA ER [facility] AT 0458, TRANSFERRED USING SLIDE SHEET AND 4 STAFF TO PCU BED. PT ON BI-PAP, SATING 85 - 90% O2 ON FiO2 30%. DENIES CHEST PAIN OR MUSCULOSKELETAL PAIN. PT SLEEPING, DROWSY. PT REPORTS THE BI-PAP CAUSES HIM ANXIETY AND MAKES HIM FEEL "CLAUSTROPHOBIC". CONNECTED TO TELEMETRY, SINUS RHYTHM AT 75. IV IN RIGHT AC. RN WILL CONTINUE TO MONITOR.
--- NOTE | 2020-07-12 06:29 | NUR ---
SHIFT SUMMARY PT REMAINED ON BI-PAP DURING THE SHIFT. HE CONTINUED TO SAT BETWEEN 85 - 90% ON BI PAP. CHARGE NURSE AND RN INCREASED FIO2 TO 35%, RT NOTIFIED. TELEMETRY CONTINUED WITH NSR. AT TIMES, PT WILL BECOME ANXIOUS OR FRUSTRATED DUE TO WEARING THE BI-PAP MAKES HIM UNCOMFORTABLE AND CLAUSTROPHOBIC. WILL CONTINUE TO MONITOR.
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
[2020-07-12 10:01] LABS: BASOPHILS ABSOLUTE AUTO 0.02 K/mm3 (0.00-0.23); BASOPHILS PERCENT AUTO 0 % (0-2); EOSINOPHILS PERCENT AUTO 0 % (0-6); Hematocrit 44.6 % (37.0-53.0); Hemoglobin 12.9 g/dL (13.5-17.5); IMMATURE GRAN ABSOLUTE AUTO 0.11 K/mm3 (0.00-0.10); IMMATURE GRAN PERCENT AUTO 1 % (0-1); LYMPHOCYTES ABSOLUTE AUTO 0.38 K/mm3 (0.84-5.20); LYMPHOCYTES PERCENT AUTO 3 % (21-46); MONOCYTES ABSOLUTE AUTO 0.06 K/mm3 (0.16-1.47); MONOCYTES PERCENT AUTO 1 % (4-13); Mean Corpuscular HGB 23.1 pg (26.0-34.0); Mean Corpuscular HGB Conc 28.9 g/dL (31.5-36.5); Mean Corpuscular Volume 80 fL (80-100); Mean Platelet Volume 9.6 fL (9.1-12.4); NEUTROPHILS PERCENT AUTO 95 % (41-73); Platelet Count 334 K/mm3 (150-400); RDW Coefficient Variation 17.3 % (11.7-14.2); RDW Standard Deviation 49.2 fL (35.1-46.3); Red Blood Cell Count 5.59 M/mm3 (4.30-5.90); White Blood Cell Count 12.47 K/mm3 (4.00-11.30)
[2020-07-12 10:06] LABS: PCO2 Arterial 70.6 mmHg (35-45); PO2 Arterial 90.9 mmHg (80-100); pH Blood Arterial 7.29 (7.35-7.45)
[2020-07-12 10:24] LABS: Alanine Aminotransfer (ALT/SGP 81 U/L (12-78); Albumin/Globulin Ratio 0.7 (0.8-1.8); Alk Phos 99 U/L (50-136); Anion Gap 2 mmol/L (6-16); Aspartate Aminotrans (AST/SGOT 21 U/L (12-37); Bilirubin, Total 0.3 mg/dL (0.1-1.0); Blood Urea Nitrogen 20 mg/dL (8-24); Bun/Creatinine Ratio 25.9 (12.0-20.0); CO2, Blood 31 mmol/L (21-32); Calcium, Blood 7.9 mg/dL (8.5-10.1); Chloride, Blood 103 mmol/L (98-108); Creatinine, Blood 0.77 mg/dL (0.60-1.20); Globulin, Blood 4.3 g/dL (2.2-4.0); Glomerular Filtration Rate >60 (60-); Glucose, Blood 150 mg/dL (70-99); Potassium, Blood 4.7 mmol/L (3.5-5.5); Sodium, Blood 136 mmol/L (136-145); Total Protein, Blood 7.3 g/dL (6.4-8.2)
[2020-07-12 10:25] LABS: Troponin I 0.116 ng/mL (0.000-0.040)
[2020-07-12 12:41] LABS: U Amphetamine Screen Not Detected; U Barbituate Screen Not Detected; U Benzodiazapine Screen Not Detected; U Buprenorphine Screen Not Detected; U Cannabinoids Screen Not Detected; U Cocaine Screen Not Detected; U Methadone Screen Not Detected; U Methamphetamine Screen DETECTED; U Opiates Screen Not Detected; U Oxycodone Screen Not Detected; U Phencyclidine Screen Not Detected; U Propoxyphene Screen Not Detected
--- NOTE | 2020-07-12 13:26 | NUR ---
UPDATE; BIPAP CONTINUES, APPEARS CALM. DISCUSSED NEED FOR ORAL CARE WHILE USING BIPAP. REFUSES ORAL CARE. TOOTH BRUSH AND MOUTH RINSE OFFERED, DECLINED.
--- NOTE | 2020-07-12 17:41 | NUR ---
SHIFT SUMMARY; BIPAP REMAINS IN PLACE DURING SHIFT. CURRENT SETTINGS 23/08 40%. SLEEPING SINCE MIDMORNING. AWAKES TO VERBAL STIMULI AND TO USE URINAL AT BEDSIDE. SATS MAINTAINED AT 90-92%. HR SINUS. REPOSITIONS SELF NEEDED, SITS AT BEDSIDE TO USE URINAL WHEN NEEDED. MEDICATED PER EMAR. LLE EDEMA 3+, PT STATES NOT NORMAL FOR HIM. WILL CONTINUE TO MONITOR AND TREAT UNTIL CHANGE OF SHIFT.
[2020-07-12 18:44] LABS: Troponin I 0.079 ng/mL (0.000-0.040)
--- NOTE | 2020-07-12 21:08 | NUR ---
PT IS A&O X4, DIET ADVANCED TO CARDIAC. PT IS CONNECTED TO TELEMETRY, SINUS RHYTHM IN THE 90'S. HE IS SATING AT 93% O2 ON 5LPM VIA NC. DENIES CHEST PAIN. HE IS SOB AT REST, AND IS USING ACCESSORY MUSCLES TO BREATHE. EXPIRATORY WHEEZING NOTED THROUGH OUT LUNG CONKLIN. OCCASIONAL COUGH, PRODUCES SPUTUM THAT PT DESCRIBES "GREEN AND YELLOW." SPECIMEN CUP AT BEDSIDE TABLE TO COLLECT A SAMPLE FOR LAB. PT IS VOIDING USING URINAL, DENIES DIZZINESS WHEN STANDING AT BEDSIDE TO USE URINAL. WILL CONTINUE TO MONITOR.
[2020-07-13 04:43] LABS: Anion Gap 0 mmol/L (6-16); Blood Urea Nitrogen 29 mg/dL (8-24); Bun/Creatinine Ratio 30.1 (12.0-20.0); CO2, Blood 38 mmol/L (21-32); Calcium, Blood 8.3 mg/dL (8.5-10.1); Chloride, Blood 99 mmol/L (98-108); Creatinine, Blood 0.96 mg/dL (0.60-1.20); Glomerular Filtration Rate >60 (60-); Glucose, Blood 129 mg/dL (70-99); Phosphorus, Blood 4.5 mg/dL (2.5-4.9); Potassium, Blood 4.9 mmol/L (3.5-5.5); Sodium, Blood 137 mmol/L (136-145)
[2020-07-13 04:47] LABS: PCO2 Arterial 80.4 mmHg (35-45); pH Blood Arterial 7.28 (7.35-7.45)
[2020-07-13 04:48] LABS: PO2 Arterial 88.7 mmHg (80-100)
--- NOTE | 2020-07-13 06:01 | NUR ---
SHIFT SUMMARY PT STATED THAT HE DID NOT WANT TO WEAR THE BI-PAP. HE STATED HE "COULDN'T BREATHE" ON THE BI-PAP, AND PREFERRED TO WEAR THE NASAL CANNULA. THROUGH OUT THE NIGHT, PT WOULD BECOME AGGITATED WHILE WEARING THE BI-PAP AND CALL STAFF TO SWITCH TO O2 NC. AT TIMES, PT WOULD BECOME ANGRY AT RT AND CRAYON MOLDING MACHINE OPERATOR FOR ADVISING PT TO WEAR THE BI-PAP. PT CONTINUED TO SAT BETWEEN LOW 80'S TO 94% ON 5 LPM OXYGEN. HE AMBULATED INDEPENDENTLY TO THE BATHROOM. PT REMAINED CONNECTED TO TELEMETRY, SINUS RHYTHM. WILL CONTINUE TO MONITOR.
[2020-07-13 09:50] LABS: Base Excess Venous 10.5 mmol/L; Bicarbonate Venous 31.5 mmol/L (24.0-30.0); PCO2 Venous 69.1 mmHg (38-42); PO2 Venous 55.5 mmHg (38-42); pH Blood Venous 7.33 (7.34-7.37)
--- NOTE | 2020-07-13 12:19 | NUR ---
UPDATE; REFUSES BIPAP. YELLING TO TAKE MASK OFF AND PLACE ON OXYGEN. STATES "I DON'T CARE IF I , I CAN'T WEAR THAT MASK, IT'S RIPPED MY NOSE UP". OFFERED NOSE, PAD, REPOSITIONING OF MASK. CONTINUES TO YELL THAT WON'T WEAR IT. PLACED ON 3L VIA NC. SATS 3%. UPDATED ADMINISTRATIVE SUPPORT CLERK OF SITUATION.
[2020-07-13 14:04] LABS: Base Excess Venous 13.7 mmol/L; Bicarbonate Venous 34.3 mmol/L (24.0-30.0); PCO2 Venous 69.7 mmHg (38-42); PO2 Venous 53.3 mmHg (38-42); pH Blood Venous 7.36 (7.34-7.37)
--- NOTE | 2020-07-13 15:42 | NUR ---
DEMANDS TO LEAVE AMA. STATES "YOU PEOPLE DON'T KNOW ANYTHING, I'M GETTING OUT OF HERE". CHARGE NURSE NOTIFIED. AMA PAPERWORK SIGNED. PT LEAVES WITH HOME [address] IS[place] AND NOTIFIED.
== END 2020-07-13 15:35 | disposition left against medical advice (07) | DRG 871 ==
LOC: ER 01:56 → PCU 02:49
PROVIDERS: Emergency Medicine; Internal Medicine; Internal Medicine Pulmonary Disease; ADMIT Internal Medicine
PROC: 5A09357 Assistance with Respiratory Ventilation, Less than 24 Consecutive Hours, Continuous Positive Airway Pressure (ICD-10-PCS; principal; 2020-07-12)
DX: A41.9 Sepsis, unspecified organism (principal); J96.21 Acute and chronic respiratory failure with hypoxia; J96.22 Acute and chronic respiratory failure with hypercapnia; I50.31 Acute diastolic (congestive) heart failure; J18.9 Pneumonia, unspecified organism; Q21.3 Tetralogy of Fallot; J44.1 Chronic obstructive pulmonary disease with (acute) exacerbation; J44.0 Chronic obstructive pulmonary disease with (acute) lower respiratory infection; I11.0 Hypertensive heart disease with heart failure; Z20.822 Contact with and (suspected) exposure to COVID-19; M54.5 Low back pain; G89.29 Other chronic pain; E66.9 Obesity, unspecified; D63.8 Anemia in other chronic diseases classified elsewhere; F41.9 Anxiety disorder, unspecified; F15.90 Other stimulant use, unspecified, uncomplicated; Z68.39 Body mass index [BMI] 39.0-39.9, adult; Z87.891 Personal history of nicotine dependence; Z88.0 Allergy status to penicillin; Z98.890 Other specified postprocedural states; Z79.51 Long term (current) use of inhaled steroids; Z79.52 Long term (current) use of systemic steroids; Z79.899 Other long term (current) drug therapy
CPT/HCPCS: 36415; 36600; 71045; 80053; 80069; 82550; 82803; 83605; 83880; 84484; 85025; 93005; 93010; 94644; 94660; 94762; 96365; 96375; 99285-25; A9270; J1650; J1940; J1956; J2060; J2930; J3475; J7050; U0004